=== PATIENT | female | born 1975 | race Caucasian/White ===

== ENCOUNTER 2018-12-24 23:56 | Emergency (ER) | payer OTHER ==
[2018-12-25 00:15] VITALS: BP 158/95; PULSE 61; RESP 18; TEMP 98.2
[2018-12-25] MEDS ORDERED: IBUPROFEN 600 MG TAB PO STA (00:41)
[2018-12-25] MEDS ORDERED: ACETAMINOPHEN TAB 325 MG TAB PO STA (00:41)
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
--- NOTE | 2018-12-25 01:19 | XR ---
EXAM: XR Left Forearm, 2 Views CLINICAL HISTORY: [email or web address].[email or web address] XR Reason: Pain TECHNIQUE: Frontal and lateral views of the left forearm. COMPARISON: No relevant prior studies available. FINDINGS: Bones/joints: No acute fracture. No dislocation. Soft tissues: Unremarkable. IMPRESSION: No acute findings.
--- NOTE | 2018-12-25 01:22 | XR ---
EXAM: XR Left Hand Complete, 3 or More Views CLINICAL HISTORY: [email or web address].[email or web address] XR Reason: Pain TECHNIQUE: Frontal, lateral and oblique views of the left hand. COMPARISON: No relevant prior studies available. FINDINGS: Bones/joints: No acute fracture. No dislocation. Soft tissues: Unremarkable. No radiopaque foreign body. IMPRESSION: No acute findings.
== END 2018-12-25 01:33 | disposition home or self-care (01) ==
LOC: EC 23:56
DX: S56.912A Strain of unspecified muscles, fascia and tendons at forearm level, left arm, initial encounter (principal); S60.222A Contusion of left hand, initial encounter; Z85.820 Personal history of malignant melanoma of skin; Z88.5 Allergy status to narcotic agent; Y08.89XA Assault by other specified means, initial encounter
CPT/HCPCS: 99283